=== PATIENT | female | born 1995 | race Caucasian/White ===

== ENCOUNTER 2021-09-07 11:24 | Emergency (ER) | payer BC, SELFPAY ==
[2021-09-07 11:25] VITALS: BP 120/88; PULSE 99; RESP 15; TEMP 36.4; O2SAT 99; BMI 39.5
--- NOTE | 2021-09-07 12:19 | EDS_ITS ---
HPI History of Present Illness Chief Complaint: Allergic Reaction Informant: patient Narrative Narrative: Patient is a 26-year-old female with no significant past medical history presenting with concerns for throat and mouth swelling. Patient states she lives in [place] and was driving from [place] to [place] last night when she suddenly felt that her upper lip was starting to swell. She then felt that her tongue started to swell. She drank some of her son's liquid Zyrtec and when she got to her parents house had Benadryl. She last had a Benadryl at 6 AM. She continued to feel that she was having some swelling so she came to emergency room. Patient notes that last week she was placed on steroids and Keflex for a rash and itching on her torso and on her head. She did not take the steroid yesterday but has continued to take the Keflex. She states she tolerated Keflex in the past. Denies any other new exposures. No other complaints at this time. Denies any difficulty breathing. PFSH PFS Medical History no medical history Home Medications NK 09/07/21 [History Last Taken Unknown] Allergy/AdvReac Type Severity Reaction Status Date / Time No Known Allergies Allergy Verified 09/07/21 11:25 Surgical History no surgical history Social History Smoking Status: Never smoker ROS ROS ED Constitutional Constitutional ED: Denies chills or fever(s) Eyes Eyes: Denies blurry vision or change in vision ENT ENT ED: Reports sore throat and other Details: Sensation of lip and tongue swelling ; Denies rhinorrhea Cardiovascular Cardiovascular: Denies chest pain or palpitations Respiratory/Chest Respiratory/Chest: Denies cough or dyspnea Gastrointestinal Gastrointestinal: Denies abdominal pain, diarrhea or vomiting Musculoskeletal Musculoskeletal: Denies arthralgias or myalgias Integumentary Denies Abrasions or rash Neurologic Neurologic: Denies headache(s), paresthesias or weakness Psychiatric Psychiatric: Denies depression EXAM Physical Exam Const Vital Signs: 09/07/21 11:25 09/07/21 12:38 Temperature 97.5 F L Temperature Source Temporal Pulse Rate 99 74 Respiratory Rate 15 16 Blood Pressure 120/88 H 119/74 Blood Pressure Mean 98 Pulse Ox 99 98 Oxygen Delivery Method Room Air Positive well nourished and well developed General Appearance ED: well developed HEENT Reports TM's clear and moist mucous membranes HEENT Narrative: No oral pharyngeal edema appreciated. Normal-appearing tongue. Normal lips. Normal buccal surfaces. Tympanic Membrane ED: Yes TM's clear Eyes PERRL and EOMs intact bilaterally Neck supple Neck Narrative: No stridor Chest Wall inspection of chest normal Resp normal respiratory effort and clear to auscultation bilaterally Auscultation: Negative for wheezes Cardio regular rate, regular rhythm and no murmurs GI normal to inspection, nondistended, normoactive bowel sounds Palpation: soft Extremity normal to inspection General Extremety ED: Negative for edema or tenderness General Extremity: Negative for edema Neuro oriented x3 Sensorium / Orientation: alert Motor Exam: Negative for general weakness Psych mental status grossly normal Skin no rashes or lesions noted and no wounds Skin Narrative: No urticaria present. Patient has some slight folliculitis of her pubic region consistent with shaving. MDM MDM MDM Narrative Medical decision making narrative: Patient evaluated for sensation of throat and lip swelling. She currently does not have any signs of angioedema. She has no signs of anaphylaxis. She has been on Keflex as well as prednisone for recent rash. Patient instructed to stop the Keflex. She does not have any findings consistent with an acute cellulitis or need for antibiotics. She is given 60 mg dose of prednisone in the ER as well as 50 mg of Benadryl. She will continue take Benadryl at home and resume her 40 mg daily prednisone. She has 3 days left. She is counseled return precautions. She verbalized agreement understand this plan. Patient discharged home in stable condition. Discharge Plan Triage Chief Complaint: Allergic Reaction ED Provider: Jennifer Zhang Dx/Rx/DC Orders Clinical Impression: Allergic reaction Instructions: ED ADVERSE DRUG REACTION Allergic, ED General Allergic Reactions Prescriptions: No Action NK RF: 0 Referrals: Anthony Granger MD [NON-STAFF] - Activity Restrictions/Additional Instructions: Continue taking Benadryl for symptoms as well as the prednisone prescribed. Stop taking the Keflex. It is possible you could be having a reaction to the Keflex or from another unknown substance. Disposition Disposition: Home, Self Care Discharge Date/Time: 09/07/21 12:48
[2021-09-07] MEDS: predniSONE 20 MG Tablet 60 MG PO (12:37)
[2021-09-07] MEDS: DiphenhydrAMINE 25 MG Capsule 50 MG PO (12:37)
[2021-09-07 12:38] VITALS: BP 119/74; PULSE 74; RESP 16; O2SAT 98
== END 2021-09-07 12:48 | disposition home or self-care (01) ==
LOC: ED 12:37
PROVIDERS: Emergency Provider Emergency Medicine; Visit Provider Emergency Medicine
DX: T78.40XA Allergy, unspecified, initial encounter (principal); X58.XXXA Exposure to other specified factors, initial encounter
CPT/HCPCS: 99284